=== PATIENT | male | born 1945 | race Caucasian/White ===

== ENCOUNTER 2017-08-09 11:04 | Outpatient (CLI) | payer MEDICARE ==
[2017-08-09 12:03] LABS: ALT (SGPT) 16 U/L (8-55); AST (SGOT) 20 U/L (5-34); Alkaline Phosphatase 49 U/L (40-150); Anion Gap 15 mmol/L (10-20); BUN (Urea Nitrogen) 19 mg/dL (8.4-25.7); Bilirubin, Total 0.4 mg/dL (0.2-1.2); Calc. Creatinine Clearance 0 mL/min (70-130); Calcium 9.2 mg/dL (7.8-10.44); Carbon Dioxide 22 mmol/L (23-31); Cardiac Risk 5.3 (Less than 4.5); Chloride 106 mmol/L (98-107); Cholesterol 202 mg/dl (< 200 Desired); Estimated GFR-MDRD 63; Globulin 3.3 g/dL (2.4-3.5); Glucose 94 mg/dL (83-110); HDL Cholesterol 38 mg/dL (>60 Neg Risk); LDL Cholesterol, Calculated 123 mg/dL; Potassium 4.2 mmol/L (3.5-5.1); Protein, Total 7.3 g/dL (5.8-8.1); Sodium 139 mmol/L (136-145); Triglycerides 205 mg/dL (Less than 150)
[2017-08-09 12:27] LABS: Free T4 (Free Thyroxine) 0.83 ng/dL (0.70-1.48); Thyroid Stimulating Hormone 0.788 uIU/mL (0.35-4.94)
--- NOTE | 2017-08-09 13:42 | RAD ---
RIGHT KNEE FOUR VIEWS: HISTORY: Pain. COMPARISON: None. FINDINGS: There is diffuse bone demineralization. There is severe degenerative change at the patellofemoral co mpartment. Mild degenerative changes in the medial compartment. Mild degenerative changes in the la teral compartment. No fracture. Vascular calcifications are identified. IMPRESSION: Degenerative changes as above. POS: GABRIELLA
--- NOTE | 2017-08-09 13:48 | RAD ---
FOUR VIEWS LEFT KNEE: DATE: 08/09/17. HISTORY: Bilateral knee pain for years. COMPARISON: 10/24/03. FINDINGS: There is tricompartment osteophytosis. Again noted is narrowing of the medial joint compartment. Th ere is no evidence of a fracture or dislocation. Calcifications are again seen in the suprapatellar location which may represent intraarticular loose bodies within the suprapatellar location. There is narrowing of the patellofemoral joint. There is no fracture or dislocation seen. Vascular calcific ations are seen posterior to the knee. There has been no significant interval change from the prior exam. IMPRESSION: Stable osteoarthritis left knee with what appears to be intraarticular loose bodies in the suprapatel lar location and possibly overlying the anterior knee joint. POS: NATALIIA
[2017-08-09 14:10] LABS: Hemoglobin A1c 7.2 % (4.0-6.0)
== END 2017-08-09 11:05 | disposition home or self-care (01) ==
LOC: SCSRAD 11:04
PROVIDERS: ATTEND Family Medicine
DX: M17.0 Bilateral primary osteoarthritis of knee (principal); E11.9 Type 2 diabetes mellitus without complications
CPT/HCPCS: 36415; 80053; 80061; 83036; 84439; 84443

== ENCOUNTER 2018-02-21 15:16 | Outpatient (CLI) | payer MEDICARE ==
--- NOTE | 2018-02-21 18:09 | MRI ---
NONCONTRAST MRI LUMBAR SPINE: 02/21/2018 HISTORY: Low back pain when standing. COMPARISON: None available. FINDINGS: There is incomplete imaging of a 2.5 cm lesion of increased T2 and corresponding decreased T1 weighte d signal intensity at the superior pole, right kidney, which is incompletely imaged. This statistica lly likely represents a small cyst. However, further evaluation with ultrasound is recommended. The conus medullaris is normal in appearance and terminates at the level of the L1 vertebral body. There are scattered endplate degenerative changes within the lumbar spine. There is a focus of incre ased T1 and T2 weighted signal intensity in the S1 vertebral body, likely related to a small hemangio ma. L1-L2: There is a mild broad-based disk osteophyte complex. This results in slight flattening at th e anterior aspect of the thecal sac. The neural foramina are patent. L2-L3: There is a broad-based disk osteophyte complex. Mild facet degenerative changes are present. There is prominence of the epidural fat, posteriorly. Findings result in mild narrowing of the georgina tral spinal canal. There is only minimal narrowing of each neural foramen. L3-L4: There is a broad-based disk osteophyte complex. There are facet hypertrophic changes and pro minence of the epidural fat, posteriorly. This results in mild narrowing of the thecal sac. There i s mild to moderate right and mild left-sided neural foraminal narrowing. L4-L5: There is a broad-based disk osteophyte complex with irregularity of the right lamina of L4, w hich may be related to a prior laminotomy defect or prior injury. There is a broad-based disk osteop hyte complex present at this level. Facet degenerative changes are present, and there is prominence of the epidural fat. There is mild generalized narrowing of the thecal sac. Facet hypertrophic hernadez ges are noted. Findings result in moderate right and mild to moderate left-sided neural foraminal na rrowing. L5-S1: There is a broad-based disk osteophyte complex. There are facet hypertrophic changes present . There is prominence of epidural fat posteriorly, and there is mild narrowing of the thecal sac. T here is mild bilateral neural foraminal narrowing present. IMPRESSION: 1. Generalized mild narrowing of the thecal sac at multiple levels, primarily secondary to mild disk osteophyte complexes and prominence of epidural fat posteriorly, at multiple levels. 2. Mild to moderate degrees of neural foraminal narrowing, as described above. 3. Cystic lesion, incompletely imaged or evaluated, superior pole, right kidney. Renal sonogram is recommended for further evaluation. POS: NATALIIA
== END 2018-02-21 15:17 | disposition home or self-care (01) ==
LOC: SCSMRI 15:16
PROVIDERS: ATTEND Family Medicine
DX: M54.5 Low back pain (principal); M99.83 Other biomechanical lesions of lumbar region; N28.1 Cyst of kidney, acquired; M25.78 Osteophyte, vertebrae
CPT/HCPCS: 72148